=== PATIENT | female | born 1960 | race Caucasian/White ===

== ENCOUNTER 2017-04-19 06:49 | Day surgery (SDC) | payer BC ==
[~2017-04-19] VITALS: Ht 160 cm; Wt 83.0 kg
[~2017-04-19 06:49] MED LIST: LEVOTHYROXINE112 MCG PO; LEXAPRO10 MG PO; METFORMIN HCL750 MG PO; OMEPRAZOLE20 MG PO; VITAMIN D32000 UNI1 PO
[2017-04-19 07:33] VITALS: BP 151/84
[2017-04-19 08:04] LABS: POINT-OF-CARE METER ID UU14174212
[2017-04-19 08:35] LABS: ANION GAP 11 MEQ/L (2-14); CHLORIDE 105 MEQ/L (99-109); POTASSIUM 4.3 MEQ/L (3.7-5.4); SAMPLE HEMOLYSIS CHECK 0; SAMPLE ICTERIC CHECK 0; SAMPLE LIPEMIA CHECK 0; SODIUM 141 MEQ/L (136-147)
[2017-04-19 08:41] LABS: GFR ESTIMATE (CALCULATED) > 59 mL/min/; GLUCOSE 115 mg/dL (70-99); UREA NITROGEN (BUN) 16 mg/dL (9-23)
[2017-04-19 11:04] LABS: POINT-OF-CARE METER ID UU13113675
[2017-04-19] MEDS ORDERED: NORCO 5/3251 TABLET PO (11:13)
[2017-04-19 13:18] VITALS: BP 141/82
[2017-04-19 14:12] VITALS: BP 133/74
== END 2017-04-19 14:19 | disposition home or self-care (01) ==
LOC: SDC 06:49 → EDSTATUS 13:11 → SDC 13:11
PROVIDERS: Surgery
DX: K80.10 Calculus of gallbladder with chronic cholecystitis without obstruction (principal); K21.9 Gastro-esophageal reflux disease without esophagitis; E11.9 Type 2 diabetes mellitus without complications; Z79.84 Long term (current) use of oral hypoglycemic drugs; E03.9 Hypothyroidism, unspecified; M19.90 Unspecified osteoarthritis, unspecified site; F32.9 Major depressive disorder, single episode, unspecified; F41.9 Anxiety disorder, unspecified; Z83.3 Family history of diabetes mellitus; Z80.3 Family history of malignant neoplasm of breast
CPT/HCPCS: 74300; 76000; 80048; 82948; 88304; 93005; C1769; J0131; J0330; J1100; J1170; J2250; J2405; J2710; J3010; J7120; S0020